=== PATIENT | female | born 1980 | race Hispanic/Latino ===

== ENCOUNTER 2018-03-09 18:31 | Emergency (ER) | payer BC ==
[2018-03-09] MEDS ORDERED: ONDANSETRON ODT 4 MG TAB ONE (19:06)
[2018-03-09] MEDS ORDERED: ACETAMINOPHEN EXTRA STRENGTH 500 MG TABLET ONE (19:06)
[2018-03-09 22:32] LABS: APPEARANCE,URINE Clear (CLEAR); BILIRUBIN,URINE Negative (NEGATIVE); COLOR,URINE Yellow (YELLOW); GLUCOSE, URINE (UA) Negative (NEGATIVE); KETONES,URINE Negative (NEGATIVE); LEUKOCYTE ESTERASE ,URINE Moderate (NEGATIVE); NITRATE,URINE Negative (NEGATIVE); OCCULT BLOOD,URINE Negative (NEGATIVE); PH,URINE 6.5 (5.0-8.0); PROTEIN,URINE Negative (NEGATIVE)
[2018-03-09 22:36] LABS: HCG,QUAL RESULT NEGATIVE (NEGATIVE)
[2018-03-09 22:44] LABS: RBC,URINE None Seen /HPF (0-1)
[2018-03-09 22:49] LABS: BACTERIA,URINE Moderate /HPF (None Seen); SQUAMOUS EPITHELIAL CELL,UR Few /HPF (0-2)
[2018-03-09] MEDS ORDERED: CEFTRIAXONE SODIUM 1 GM ONE (22:56)
== END 2018-03-09 23:26 | disposition home or self-care (01) ==
LOC: EDH 18:31
DX: N39.0 Urinary tract infection, site not specified (principal); R09.81 Nasal congestion; Z88.0 Allergy status to penicillin
CPT/HCPCS: 81001; 81025; 87088; 87804 ×2; 96372; 99283; J0696